=== PATIENT | male | born 1955 | race Caucasian/White ===

== ENCOUNTER 2017-03-17 14:30 | Emergency (ER) | payer OTHER ==
[~2017-03-17] VITALS: Ht 172.7 cm; Wt 81.0 kg
[~2017-03-17 14:30] MED LIST: ANAPROX DS550 M1 PO
[2017-03-17] MEDS ORDERED: BACTRIM,SEPT1 TABLET PO (16:34)
[2017-03-17] MEDS ORDERED: KEFLEX500 MG PO (16:34)
[2017-03-17 16:48] VITALS: BP 158/88
== END 2017-03-17 16:49 | disposition home or self-care (01) ==
LOC: EME 14:30
PROC: 0H91XZZ Drainage of Face Skin, External Approach (ICD-10-PCS; principal; 2017-03-17)
DX: J34.0 Abscess, furuncle and carbuncle of nose (principal)
CPT/HCPCS: 99281; 99283

== ENCOUNTER 2017-03-27 11:32 | Emergency (ER) | payer OTHER ==
[~2017-03-27] VITALS: Ht 175.3 cm; Wt 80.5 kg
[~2017-03-27 11:32] MED LIST changes: +BACTRIM,SEPT1 TABLET PO; +KEFLEX500 MG PO
[2017-03-27] MEDS ORDERED: DOXYCYCLINE MO100 MG PO (13:24)
[2017-03-27 13:47] VITALS: BP 143/84
== END 2017-03-27 13:50 | disposition home or self-care (01) ==
LOC: RME 11:32 → EME 11:32 → RME 13:50
PROC: 0H91XZZ Drainage of Face Skin, External Approach (ICD-10-PCS; principal; 2017-03-27)
DX: J34.0 Abscess, furuncle and carbuncle of nose (principal); Z98.890 Other specified postprocedural states; Z87.891 Personal history of nicotine dependence
CPT/HCPCS: 99281; 99284